=== PATIENT | male | born 1955 | race Caucasian/White ===

== ENCOUNTER 2021-07-01 09:16 | Outpatient (CLI) | payer MEDICARE, BC | END 2021-07-01 09:17 | disposition home or self-care (01) | LOC: NM 09:16 | PROVIDERS: ATTEND Neurological Surgery | DX: M47.812 Spondylosis without myelopathy or radiculopathy, cervical region (principal); M54.2 Cervicalgia; R91.8 Other nonspecific abnormal finding of lung field; M54.6 Pain in thoracic spine | CPT/HCPCS: 78306; A9503 ==

== ENCOUNTER 2021-07-01 14:37 | Emergency (ER) | payer MEDICARE, BC | END 2021-07-01 15:30 | disposition home or self-care (01) | LOC: ERS 14:37 | DX: S90.425A Blister (nonthermal), left lesser toe(s), initial encounter (principal); I80.02 Phlebitis and thrombophlebitis of superficial vessels of left lower extremity; E11.9 Type 2 diabetes mellitus without complications; I10 Essential (primary) hypertension; M10.9 Gout, unspecified; E78.5 Hyperlipidemia, unspecified; K21.9 Gastro-esophageal reflux disease without esophagitis; Z79.82 Long term (current) use of aspirin; Z79.4 Long term (current) use of insulin; Z79.899 Other long term (current) drug therapy; X58.XXXA Exposure to other specified factors, initial encounter | CPT/HCPCS: 99283 ==

== ENCOUNTER 2021-07-04 11:08 | Outpatient (CLI) | payer MEDICARE, BC ==
[2021-07-05 00:58] LABS: SARS-CoV-2 PCR by NAA Not Detected (NotDetected)
== END 2021-07-04 11:09 | disposition home or self-care (01) ==
LOC: LABBT 11:08
PROVIDERS: ATTEND Neurological Surgery
DX: Z20.822 Contact with and (suspected) exposure to COVID-19 (principal)
CPT/HCPCS: U0003; U0005

== ENCOUNTER 2021-07-08 10:50 | Day surgery (SDC) | payer MEDICARE, BC ==
[2021-07-07 10:21] VITALS: BMI 24.3
[2021-07-08] MEDS ORDERED: PROPOFOL 20 ML ONE (14:34)
[2021-07-08] MEDS ORDERED: Fentanyl 100 MCG/2 ML VIAL ONE ×2 (14:34→15:59)
[2021-07-08] MEDS ORDERED: Lidocaine 1% PF 5 ML VIAL ONE (14:45)
[2021-07-08] MEDS ORDERED: Acetaminophen 500 MG TAB ONE (17:02)
[2021-07-08] MEDS ORDERED: Cyclobenzaprine 10 MG TAB ONE (17:02)
== END 2021-07-08 17:32 | disposition home or self-care (01) ==
LOC: MRI 10:50 → EDSTATUS 13:00 → MRI 17:32
PROVIDERS: ATTEND Neurological Surgery
DX: M47.812 Spondylosis without myelopathy or radiculopathy, cervical region (principal); M47.813 Spondylosis without myelopathy or radiculopathy, cervicothoracic region; M47.814 Spondylosis without myelopathy or radiculopathy, thoracic region; M51.24 Other intervertebral disc displacement, thoracic region; M48.02 Spinal stenosis, cervical region; M48.04 Spinal stenosis, thoracic region; R91.8 Other nonspecific abnormal finding of lung field; E11.9 Type 2 diabetes mellitus without complications; I10 Essential (primary) hypertension; E07.9 Disorder of thyroid, unspecified; M19.90 Unspecified osteoarthritis, unspecified site; M10.9 Gout, unspecified; Z79.2 Long term (current) use of antibiotics; Z79.82 Long term (current) use of aspirin; Z79.84 Long term (current) use of oral hypoglycemic drugs; Z79.899 Other long term (current) drug therapy; Z88.5 Allergy status to narcotic agent
CPT/HCPCS: 72141; 72146; J2704; J3010

== ENCOUNTER 2021-08-26 09:32 | Outpatient (CLI) | payer MEDICARE, BC | END 2021-08-26 09:33 | disposition home or self-care (01) | LOC: PET 09:32 | PROVIDERS: ATTEND Internal Medicine Critical Care Medicine | DX: R91.1 Solitary pulmonary nodule (principal) | CPT/HCPCS: 78815; A9552 ==

== ENCOUNTER 2022-02-20 09:16 | Outpatient (CLI) | payer MEDICARE, BC | END 2022-02-20 09:17 | disposition home or self-care (01) | LOC: BICCT 09:16 | PROVIDERS: ATTEND Internal Medicine Critical Care Medicine | DX: R91.1 Solitary pulmonary nodule (principal); R91.8 Other nonspecific abnormal finding of lung field | CPT/HCPCS: 71250 ==

== ENCOUNTER 2024-04-07 09:36 | Outpatient (CLI) | payer MEDICARE, BC | END 2024-04-07 09:37 | disposition home or self-care (01) | LOC: CT 09:36 | PROVIDERS: ATTEND Internal Medicine Critical Care Medicine | DX: R91.1 Solitary pulmonary nodule (principal) | CPT/HCPCS: 71250 ==